=== PATIENT | female | born 1960 | race Caucasian/White ===

== ENCOUNTER → 2016-07-01 | Outpatient (CLI) | payer OTHER ==
--- NOTE | ~2016-07-01 | MY8 ---
[facility] A Service of [facility] RADIOLOGY TEXT RESULTS PATIENT: GREGORIA DEE LOCATION: [facility] : 58 UNIT #: [id number] AGE: [address]: SHANE PICHARDO APRN SEX: F ORDER DR: [id number] [facility] [address] [place], [place] [address] [id number] O MR#: [id number] Acc #: [id number] NAME: GREGORIA DEE : 1960 SEX: F STUDY DATE/TIME: 07/01/2016 9:25 UNIT: [facility] ROOM: STUDY DESCRIPTION: MY Mammogram Dx Dig Rt Attending Physician: Katie Pichardo M.D. Ordering Physician: Katie Pichardo M.D. Primary Care Physician: Efrain Quesada M.D. MEDICAL IMAGING REPORT This report is preliminary unless electronic signature is present EXAM Right digital diagnostic mammogram. COMPARISON Mammograms dated May 20, 2016; April 03, 2013; and January 11, 2013. INDICATIONS 56-year-old female with a right breast asymmetry in the superior posterior third of the right breast on right MLO view. FINDINGS Spot compression MLO and full field ML views were obtained. Asymmetry of initial concern nearly completely effaces with spot compression with minimal residual asymmetry in this location. However, this now appears stable as compared to more remote mammograms and is consistent with normal breast tissue. There are no suspicious findings in the right breast. IMPRESSION No mammographic evidence of malignancy. Continued annual screening mammography and clinical breast exam are recommended. These findings and recommendations were discussed with the patient today. Patients over the age of 40 are entered into a reminder system with target due date for the next mammogram. A result letter will also be sent to the patient. BIRADS: 2 Benign finding. Dictated by... Cristóbal Perez M.D. [facility] A Service [facility] RADIOLOGY TEXT RESULTS PATIENT: GREGORIA DEE LOCATION: [facility] : 58 UNIT #: [id number] AGE: [address]: SHANE PICHARDO APRN SEX: F ORDER DR: THIS IS AN ELECTRONICALLY VERIFIED REPORT Cristóbal Perez M.D. at 07/03/2016 6:55 PM BLM/pc TD: 07/01/2016 11:49 JOB #: [id number] MEDICAL IMAGING REPORT COPY
== END | disposition home or self-care (01) ==
LOC: CMAM 09:00
DX: N64.89 Other specified disorders of breast (principal)
CPT/HCPCS: G0206